=== PATIENT | male | born 1990 | race American Indian/Alaskan Native ===

== ENCOUNTER 2017-11-24 15:42 | Emergency (ER) | payer MEDICARE ==
[2017-11-24 16:07] VITALS: BP 126/76
[2017-11-24 16:49] LABS: Bilirubin,Urine NEG (Negative); Blood,Urine NEG (Negative); Color,Urine Straw (Yellow); Protein,Urine <15 mg/dL mg/dL (Negative); Urobilinogen,Urine < 2.0 mg/dL (<2.0); WBC,Urine < 1.0 /HPF (0.0-6.0)
--- NOTE | 2017-11-24 17:41 | Emergency Department Report ---
ED Male HPI - General Chief complaint: Urogenital-Male Stated complaint: EXPOSURE TO STD Time Seen by Provider: 11/24/17 17:05 Source: patient Mode of arrival: Ambulatory Limitations: No Limitations - History of Present Illness Initial comments: This is a 27-year-old -Citizen Of [place] male presents with penile irritation for 2 days. Patient reports having unprotected sex 2 days ago and received a call from someone stayed in partner may potentially have an STD. Yesterday he started having lower abdominal pain that is nonradiating radiating and bilateral lateral lower abdomen. Patient reports pain is intermittent. He denies discharge, penile rash, dysuria, frequency, urgency, low back pain, fever , syncope, and chest pain. -: days(s) (2 days) Location: penis, abdomen (lower abdominal pain) Radiation: none Severity: mild Severity scale (0 -10): 0 Quality: aching Consistency: intermittent Improves with: none Worsens with: none new sexual partner denies other symptoms - Related Data Sexually active: Yes Allergies Allergy/AdvReac Type Severity Reaction Status Date / Time No Known Allergies Allergy Unverified 11/24/17 16:07 ED Review of Systems ROS: Stated complaint: EXPOSURE TO STD Other details as noted in HPI Constitutional: denies: chills, fever Respiratory: denies: cough, shortness of breath, wheezing Cardiovascular: denies: chest pain, palpitations Gastrointestinal: abdominal pain (bilateral lower abdominal pain). denies: nausea, vomiting, diarrhea Genitourinary: denies: urgency, dysuria, frequency, hematuria, discharge, testicular pain, testicular mass Neurological: denies: headache, weakness, paresthesias Psychiatric: denies: anxiety, depression ED Past Medical Hx - Social History Smoking Status: Current Every Day Smoker ED Physical Exam - General Limitations: No Limitations General appearance: alert, in no apparent distress - Respiratory Respiratory exam: Present: normal lung sounds bilaterally. Absent: respiratory distress - Cardiovascular Cardiovascular Exam: Present: regular rate, normal rhythm, normal heart sounds. Absent: systolic murmur, diastolic murmur, rubs, gallop - GI/Abdominal GI/Abdominal exam: Present: soft, normal bowel sounds. Absent: distended, tenderness, guarding, rebound, rigid, organomegaly, mass - Neurological Exam Neurological exam: Present: alert, oriented X3 - Psychiatric Psychiatric exam: Present: normal affect, normal mood - Skin Skin exam: Present: warm, dry, intact, normal color. Absent: rash ED Course Vital Signs 11/24/17 16:04 Temperature 98.7 F Pulse Rate 66 Respiratory 16 Rate Blood Pressure 126/76 O2 Sat by Pulse 98 Oximetry ED Medical Decision Making - Medical Decision Making This is a 27-year-old -Citizen Of [place] male who presents with penile irritation and pelvic pain. Patient was examined by me. Vitals are normal and in no acute distress. Urinalysis obtained and normal. Empirically treated with Rocephin 250 mg IM and azithromycin 1 g by mouth. Discharged home in stable condition. Discussed prevention options. F/U with PCP or Health Department. Critical care attestation.: If time is entered above; I have spent that time in minutes in the direct care of this critically ill patient, excluding procedure time. ED Disposition Clinical Impression: Exposure to STD Disposition: DC-01 TO HOME OR SELFCARE Is pt being admited?: No Does the pt Need Aspirin: No Condition: Stable Instructions: Sexually Transmitted Diseases (ED), Safe Sex (ED) Additional Instructions: Avoid drinking alcohol while taking antibiotics and for 24 hours after completion. Continue safe sexual intercourse. Follow up with Primary Care Provider or health department. Referrals: [facility] [Outside] - 3-5 Days [facility] [Outside] - 3-5 Days Time of Disposition: 18:12 Print Language: GREENLAND[place]
[2017-11-24] MEDS ORDERED: ROCEPHIN IM ONE (18:08)
[2017-11-24] MEDS ORDERED: ZITHROMAX PO ONE (18:08)
[2017-11-24] MEDS ORDERED: XYLOCAINE 1% MPF 5 mL INFILTRATI ONE (18:08)
== END 2017-11-24 18:40 | disposition home or self-care (01) ==
LOC: ED 15:42
DX: Z20.2 Contact with and (suspected) exposure to infections with a predominantly sexual mode of transmission (principal); F17.200 Nicotine dependence, unspecified, uncomplicated
CPT/HCPCS: 81001; 99282; J0696